=== PATIENT | female | born 1985 | race Hispanic/Latino ===

== ENCOUNTER 2021-02-10 11:53 | Emergency (ER) | payer MEDICAID ==
--- NOTE | 2021-02-10 14:09 | Event Note ---
ED Screening Note ED Screening Note: lower abd pain that began last night hx of ovarian cyst +nausea no vomiting no diarrhea normal BM yesterday no dysuria no urinary frequency, no odor, no dark urine allergy: penicillin PSHx: abdominoplasty This initial assessment/diagnostic orders/clinical plan/treatment(s) is/are subject to change based on patients health status, clinical progression and re- assessment by fellow clinical providers in the ED. Further treatment and workup at subsequent clinical providers discretion. Patient/guardian urged not to elope from the ED as their condition may be serious if not clinically assessed and managed. Initial orders include: labs, ua, pelvic
[2021-02-10 15:15] LABS: Mucus,Urine FEW /HPF; RBC,Urine < 1.0 /HPF (0.0-6.0)
[2021-02-10 15:17] LABS: Bilirubin,Urine NEG (Negative); Blood,Urine SM (Negative); Color,Urine Amber (Yellow); Urobilinogen,Urine < 2.0 mg/dL (<2.0)
--- NOTE | 2021-02-10 15:35 | Ultrasound Report ---
ULTRASOUND PELVIS INDICATION / CLINICAL INFORMATION: pelvic pain. TECHNIQUE: Transabdominal and Transvaginal. Duplex Color Doppler used: Yes. COMPARISON: None available FINDINGS: UTERUS: Present. - Appearance (if present): No significant abnormality. - Size in cm (if present): 9.6 x 4.2 x 5.8. - Endometrial Complex (if present): No significant abnormality.. Thickness in cm (if measured) = 0.9 - Mass lesions: Small fundal fibroids measuring up to 1.5 cm - Additional findings: None. RIGHT ADNEXA: Hydrosalpinx noted. No significant ovarian cyst or mass. Normal color Doppler blood yousif w. LEFT ADNEXA: Hydrosalpinx noted. No significant ovarian cyst or mass. Normal color Doppler blood flow . URINARY BLADDER: No significant abnormality. FREE FLUID: None. ADDITIONAL FINDINGS: None. IMPRESSION: 1. Bilateral hydrosalpinx. 2. Small uterine fibroids. Signer Name: Enmanuel Young MD Signed: 02/10/2021 3:31 PM Workstation Name: [email or web address]
[2021-02-10 15:44] LABS: HCG Qualitative,Urine Negative (Negative)
[2021-02-10 19:13] LABS: Alanine Aminotransferase 7 units/L (7-56); Albumin 3.8 g/dL (3.9-5); Blood Urea Nitrogen 12 mg/dL (7-17); Calcium 8.6 mg/dL (8.4-10.2); Hemolysis Index 6
[2021-02-10 19:24] LABS: Basophils % (Auto) 0.2 % (0.0-1.8); Hematocrit 37.2 % (30.3-42.9); Hemoglobin 12.4 gm/dl (10.1-14.3); Lymphocytes # (Auto) 0.7 K/mm3 (1.2-5.4); Lymphocytes % (Auto) 3.6 % (13.4-35.0); Mean Corpuscular HGB Conc 33 % (30-34); Mean Corpuscular Volume 90 fl (79-97); Monocytes # (Auto) 1.3 K/mm3 (0.0-0.8); Monocytes % (Auto) 6.5 % (0.0-7.3); Platelet Count 253 K/mm3 (140-440); Red Blood Count 4.11 M/mm3 (3.65-5.03); Red Cell Distribution Width 13.5 % (13.2-15.2)
[2021-02-10] MEDS ORDERED: oxyCODONE /ACETAMINOPHEN 5-325MG TAB PO ONE (19:33)
[2021-02-10] MEDS ORDERED: KETOROLAC 30 MG/1 ML INJ IV STA (19:33)
[2021-02-10] MEDS ORDERED: SODIUM CHLORIDE 0.9% 1000 ML 1,000 ML IV ONE (19:33)
[2021-02-10 19:34] LABS: BUN/Creatinine Ratio 17
--- NOTE | 2021-02-10 19:35 | Emergency Department Report ---
ED Female HPI - General Chief complaint: Abdominal Pain Stated complaint: AB PAIN Time Seen by Provider: 02/10/21 14:06 Source: patient Mode of arrival: Ambulatory Limitations: No Limitations - History of Present Illness MD Complaint: vaginal discharge, dysuria, pelvic pain -: Gradual, days(s) (4) Location: suprapubic Severity: moderate Quality: cramping, dull Consistency: constant Improves with: none Worsens with: intercourse, movement Are you Now?: No Associated Symptoms: vaginal discharge. denies: syncope, weakness - Related Data Sexually active: Yes Previous Rx's Medication Instructions Recorded Last Taken Type Azithromycin [Zithromax TAB] 1,000 mg PO ONCE #2 tablet 02/10/21 Unknown Rx DOXYCYCLINE Hyclate [Vibramycin 100 mg PO BID #28 capsule 02/10/21 Unknown Rx CAP] Ketorolac [Toradol] 10 mg PO Q6H PRN #15 tablet 02/10/21 Unknown Rx metroNIDAZOLE [Flagyl] 2,000 mg PO ONCE #4 tablet 02/10/21 Unknown Rx Allergies Allergy/AdvReac Type Severity Reaction Status Date / Time Penicillins Allergy Anaphylaxis Verified 02/10/21 12:27 ED Review of Systems ROS: Stated complaint: AB PAIN Other details as noted in HPI Comment: All other systems reviewed and negative ED Past Medical Hx - Past Medical History Additional medical history: " FALLOPIAN TUBE PROBLEM." ANXIETY - Surgical History Additional Surgical History: BREAST REDUCTION - Social History Smoking Status: Never Smoker Substance Use Type: None - Medications Home Medications: Home Medications Medication Instructions Recorded Confirmed Last Taken Type Azithromycin [Zithromax TAB] 1,000 mg PO ONCE #2 tablet 02/10/21 Unknown Rx DOXYCYCLINE Hyclate [Vibramycin 100 mg PO BID #28 capsule 02/10/21 Unknown Rx CAP] Ketorolac [Toradol] 10 mg PO Q6H PRN #15 tablet 02/10/21 Unknown Rx metroNIDAZOLE [Flagyl] 2,000 mg PO ONCE #4 tablet 02/10/21 Unknown Rx ED Physical Exam - General Limitations: No Limitations General appearance: alert, in no apparent distress - Head Head exam: Present: atraumatic, normocephalic - Eye Eye exam: Present: normal appearance, PERRL, EOMI Pupils: Present: normal accommodation - ENT ENT exam: Present: normal exam, normal orophraynx, mucous membranes moist - Neck Neck exam: Present: normal inspection - Respiratory Respiratory exam: Present: normal lung sounds bilaterally. Absent: respiratory distress - Cardiovascular Cardiovascular Exam: Present: regular rate, normal rhythm. Absent: systolic murmur, diastolic murmur, rubs, gallop - GI/Abdominal GI/Abdominal exam: Present: soft, tenderness (To left and right adnexa with palpation.), normal bowel sounds - Extremities Exam Extremities exam: Present: normal inspection - Back Exam Back exam: Present: normal inspection - Neurological Exam Neurological exam: Present: alert, oriented X3 - Psychiatric Psychiatric exam: Present: normal affect, normal mood - Skin Skin exam: Present: warm, dry, intact, normal color. Absent: rash ED Course Vital Signs 02/10/21 02/10/21 02/10/21 12:21 20:22 21:02 Temperature 98.1 F 99.2 F Pulse Rate 122 H 105 H Respiratory 20 17 Rate Blood Pressure 125/75 Blood Pressure 104/58 [Right] O2 Sat by Pulse 99 97 100 Oximetry 02/10/21 02/10/21 02/10/21 21:03 21:05 21:07 Temperature Pulse Rate Respiratory Rate Blood Pressure Blood Pressure [Right] O2 Sat by Pulse 99 98 98 Oximetry 02/10/21 02/10/21 02/10/21 21:09 21:11 21:13 Temperature Pulse Rate 90 Respiratory 17 Rate Blood Pressure Blood Pressure [Right] O2 Sat by Pulse 99 96 97 Oximetry 02/10/21 02/10/21 02/10/21 21:15 21:17 21:19 Temperature Pulse Rate Respiratory Rate Blood Pressure Blood Pressure [Right] O2 Sat by Pulse 97 98 98 Oximetry 02/10/21 02/10/21 02/10/21 21:21 21:23 21:25 Temperature Pulse Rate Respiratory Rate Blood Pressure Blood Pressure [Right] O2 Sat by Pulse 98 98 98 Oximetry 02/10/21 02/10/21 02/10/21 21:27 21:29 21:31 Temperature Pulse Rate Respiratory Rate Blood Pressure Blood Pressure [Right] O2 Sat by Pulse 98 98 98 Oximetry 02/10/21 02/10/21 02/10/21 21:33 21:35 21:37 Temperature Pulse Rate Respiratory Rate Blood Pressure Blood Pressure [Right] O2 Sat by Pulse 97 98 97 Oximetry 02/10/21 02/10/21 02/10/21 21:39 21:41 21:43 Temperature Pulse Rate Respiratory Rate Blood Pressure Blood Pressure [Right] O2 Sat by Pulse 98 97 99 Oximetry 02/10/21 02/10/21 02/10/21 21:45 21:47 21:48 Temperature Pulse Rate Respiratory Rate Blood Pressure Blood Pressure [Right] O2 Sat by Pulse 99 99 100 Oximetry 02/10/21 21:53 Temperature Pulse Rate Respiratory Rate Blood Pressure Blood Pressure [Right] O2 Sat by Pulse 100 Oximetry ED Medical Decision Making - Lab Data Result diagrams: 02/10/21 18:39 02/10/21 18:39 Lab Results 02/10/21 02/10/21 02/10/21 Range/Units 12:55 18:39 18:39 WBC 19.3 H (4.5-11.0) K/mm3 RBC 4.11 (3.65-5.03) M/mm3 Hgb 12.4 (10.1-14.3) gm/dl Hct 37.2 (30.3-42.9) % MCV 90 (79-97) fl MCH 30 (28-32) pg MCHC 33 (30-34) % RDW 13.5 (13.2-15.2) % Plt Count 253 (140-440) K/mm3 Lymph % (Auto) 3.6 L (13.4-35.0) % Bertie % (Auto) 6.5 (0.0-7.3) % Eos % (Auto) 0.0 (0.0-4.3) % Baso % (Auto) 0.2 (0.0-1.8) % Lymph # (Auto) 0.7 L (1.2-5.4) K/mm3 Bertie # (Auto) 1.3 H (0.0-0.8) K/mm3 Eos # (Auto) 0.0 (0.0-0.4) K/mm3 Baso # (Auto) 0.0 (0.0-0.1) K/mm3 Seg Neutrophils % 89.7 H (40.0-70.0) % Seg Neutrophils # 17.3 H (1.8-7.7) K/mm3 Sodium 135 L (137-145) mmol/L Potassium 3.3 L (3.6-5.0) mmol/L Chloride 100.0 (98-107) mmol/L Carbon Dioxide 23 (22-30) mmol/L Anion Gap 15 mmol/L BUN 12 (7-17) mg/dL Creatinine 0.7 (0.6-1.2) mg/dL Estimated GFR > 60 ml/min BUN/Creatinine Ratio 17 % Glucose 104 H (65-100) mg/dL Calcium 8.6 (8.4-10.2) mg/dL Total Bilirubin 0.60 (0.1-1.2) mg/dL AST 9 (5-40) units/L ALT 7 (7-56) units/L Alkaline Phosphatase 63 (35-129) units/L Total Protein 6.6 (6.3-8.2) g/dL Albumin 3.8 L (3.9-5) g/dL Albumin/Globulin Ratio 1.4 % Lipase 11 L (13-60) units/L Urine Color Lora (Yellow) Urine Turbidity Cloudy (Clear) Urine pH 5.0 (5.0-7.0) Ur Specific [place] 1.027 (1.003-1.030) Urine Protein 100 mg/dl (Negative) mg/dL Urine Glucose (UA) Neg (Negative) mg/dL Urine Ketones Tr (Negative) mg/dL Urine Blood Sm (Negative) Urine Nitrite Neg (Negative) Ur Reducing Substances Not Reportable Urine Bilirubin Neg (Negative) Urine Ictotest Not Reportable Urine Urobilinogen < 2.0 (<2.0) mg/dL Ur Leukocyte Esterase Mod (Negative) Urine WBC (Auto) 1.0 (0.0-6.0) /HPF Urine RBC (Auto) < 1.0 (0.0-6.0) /HPF U Epithel Cells (Auto) < 1.0 (0-13.0) /HPF Urine Mucus Few /HPF Urine HCG, Qual Negative (Negative) - Radiology Data Radiology results: report reviewed [facility] [address] [place] [address] Ultrasound Report Signed Patient: CARLOS PASCUAL MR#: [id number] : 1985 Acct:[id number] Age/Sex: 36 / F ADM Date: 02/10/21 Loc: ED Attending Dr: Ordering Physician: DUY PARRA Date of Service: 02/10/21 Procedure(s): US transvaginal Accession Number(s): [id number] cc: DUY PARRA ULTRASOUND PELVIS INDICATION / CLINICAL INFORMATION: pelvic pain. TECHNIQUE: Transabdominal and Transvaginal. Duplex Color Doppler used: Yes. COMPARISON: None available FINDINGS: UTERUS: Present. - Appearance (if present): No significant abnormality. - Size in cm (if present): 9.6 x 4.2 x 5.8. - Endometrial Complex (if present): No significant abnormality.. Thickness in cm (if measured) = 0.9 - Mass lesions: Small fundal fibroids measuring up to 1.5 cm - Additional findings: None. RIGHT ADNEXA: Hydrosalpinx noted. No significant ovarian cyst or mass. Normal color Doppler blood flow. LEFT ADNEXA: Hydrosalpinx noted. No significant ovarian cyst or mass. Normal color Doppler blood flow. URINARY BLADDER: No significant abnormality. FREE FLUID: None. ADDITIONAL FINDINGS: None. IMPRESSION: 1. Bilateral hydrosalpinx. 2. Small uterine fibroids. Signer Name: Enmanuel Young MD Signed: 02/10/2021 3:31 PM Workstation Name: [id number] Transcribed By: DEMETRIO Dictated By: Enmanuel Young MD Electronically Authenticated By: Enmanuel Young MD Signed Date/Time: 02/10/211530 DD/ 29 TD/TT: Print Cancel - Medical Decision Making This patient presents with abdominal pain of unclear etiology. Their evaluation has not identified a emergent etiology for the abdominal pain. Specifically, given the very benign exam, normal laboratory studies, and lack of significant risk factors, I have a very low suspicion for appendicitis, ischemic bowel, bowel perforation, or any other life threatening disease. I have discussed with the patient the level of uncertainty with undifferentiated abdominal pain and clearly explained the need to follow-up as noted on the discharge instructions, or return to the Emergency Department immediately if the pain worsens, develops fever, persistent and uncontrollable vomiting, or for any new symptoms or concer ns. I discussed with the patient that this presentation today for abdominal pain could represent a significant risk for an acute abdominal process. Although the tests in the ED were essentially normal, there is still a possibility of a process such as appendicitis, diverticulitis, cholecystitis, ulcer, early bowel obstruction, mesenteric ischemia, kidney stone, or even kidney infection which could subsequently cause disability or . The patient understands that they must return within 24 hours for a recheck or see their physician within 24 hours for re-exam due to the possibility of significant surgical or medical process. Critical care attestation.: If time is entered above; I have spent that time in minutes in the direct care of this critically ill patient, excluding procedure time. ED Disposition Clinical Impression: Vaginitis, UTI (urinary tract infection) Disposition: HOME / SELF CARE / HOMELESS Is pt being admited?: No Does the pt Need Aspirin: No Condition: Stable Instructions: Abdominal Pain (ED) Prescriptions: metroNIDAZOLE [Flagyl] 2,000 mg PO ONCE #4 tablet Ketorolac [Toradol] 10 mg PO Q6H PRN #15 tablet PRN Reason: Pain DOXYCYCLINE Hyclate [Vibramycin CAP] 100 mg PO BID #28 capsule Azithromycin [Zithromax TAB] 1,000 mg PO ONCE #2 tablet Referrals: VALE REAGAN MD [Primary Care Provider] - 3-5 Days
[2021-02-10 20:23] VITALS: BP 104/58
[2021-02-10] MEDS ORDERED: ONDANSETRON 4 MG/2 ML INJ ONE (21:06)
[2021-02-10] MEDS ORDERED: ONDANSETRON 4 MG/2 ML INJ IV ONE (21:07)
== END 2021-02-10 22:10 | disposition home or self-care (01) ==
LOC: ED 11:53
DX: N76.0 Acute vaginitis (principal); N39.0 Urinary tract infection, site not specified; N83.9 Noninflammatory disorder of ovary, fallopian tube and broad ligament, unspecified; F41.8 Other specified anxiety disorders; Z98.890 Other specified postprocedural states; Z88.0 Allergy status to penicillin
CPT/HCPCS: 36415; 76830; 76856; 80053; 81001; 81025; 83690; 85025; 96361; 96374; 96375; 99284; J1885; J2405; J7030